=== PATIENT | female | born 1995 | race Caucasian/White ===

== ENCOUNTER → 2019-02-04 | Outpatient (CLI) | payer OTHER ==
--- NOTE | 2019-02-10 09:53 | Diagnostic Imaging Report ---
INDICATION: Bilateral thyroid nodules. TECHNIQUE: Sonographic guidance was provided for Dr. Duran for right thyroid nodule FNA. A total of three passes was made into the solid nodule in the right lobe of the thyroid and fine needle aspiration was performed by Dr. Duran. IMPRESSION: Sonographic guidance for Dr. Duran during right thyroid nodule FNA. Dictated by: Dictated on workstation # [id number]
--- NOTE | 2019-02-10 09:54 | Diagnostic Imaging Report ---
INDICATION: Thyroid nodules. TECHNIQUE: Sonographic guidances was provided for Dr. Duran during left thyroid nodule FNA. Images demonstrate a solid nodule in the left lobe. A total of three passes was made into the solid nodule in the left lobe by Dr. Duran and fine-needle aspiration technique was utilized. IMPRESSION: Sonographic guidance for Dr. Duran during left thyroid nodule FNA. Dictated by: Dictated on workstation # [id number]
== END ==
LOC: RAD 10:28
PROVIDERS: ATTEND Otolaryngology Otolaryngology/Facial Plastic Surgery
DX: E04.2 Nontoxic multinodular goiter (principal)